=== PATIENT | female | born 1940 | race Caucasian/White ===

== ENCOUNTER 2017-12-05 15:32 | Inpatient (IN) | payer OTHER, SELFPAY ==
[~2017-12-05] VITALS: Ht 167.6 cm; Wt 85.7 kg
--- NOTE | ~2017-12-05 | EKG ---
[place] [address] [facility] [place] [address] ELECTROCARDIOGRAM REPORT Name: KE RAYMOND Room #: 438-P ADM IN M.R.#: [id number] Admission: 12/05/17 Attend Phys: Scott Mcdaniel DO Discharge: Date of : 39 Report #: [id number] THIS REPORT FOR: //name// [facility] ED Test Date: 2017-12-05 Test Time: 17:09:29 Pat Name: KE RAYMOND Department: Room: [facility] Gender: F Rolling Machine Operator: Kale MORGAN : 1940 Requested By: Alka Camp Order Number: [id number] MD: Miguelito Taylor Measurements Intervals [place] Rate: 92 P: 74 AK: 164 QRS: -18 QRSD: 101 T: 55 QT: 332 QTc: 411 Interpretive Statements Sinus rhythm Borderline left axis deviation No previous ECG available for comparison Electronically Signed On 12-05-2017 22:27:00 [employer]OM[employer]BI[employer] by Miguelito Taylor [email or web address] <ELECTRONICALLY SIGNED> By: Miguelito Taylor MD 12/05/17 2227 1709 1709 Miguelito Taylor MD /AURELIO
--- NOTE | ~2017-12-05 | HC ---
[facility] [place] [address] CONSULTATION Name: SEGUNDOKE SHEPPARD Room #: 438-P ADM IN M.R.#: [id number] Admission: 12/05/17 Attend Phys: Scott Mcdaniel DO Discharge: Date of : 39 Report #: [id number] THIS REPORT FOR: //name// CC: Nathan Mcdaniel TYPE OF REPORT: Infectious disease consultation. REASON FOR CONSULTATION: I was asked to evaluate the patient concerning postoperative fever. HISTORY OF PRESENT ILLNESS: The patient was a 77-year old with underlying history of Parkinson's disease, who fell at home fracturing her left hip with a comminuted displaced intertrochanteric femur fracture. No other injuries were noted. On 12/05/2017, she was admitted and on 12/07/2016, underwent ORIF of the left femur fracture with a TFN nail device. There were no intraoperative complications were reported. Postoperatively, she has done reasonably well, although she has had a significant amount of pain. Today, she spiked temperature to 38.5 along with mild tachycardia. Blood pressure has been reasonably stable. The patient has had some confusion and oxygen requirements have increased to 2 liters. Currently, the patient reports mild headache with no pharyngitis symptoms. No nausea, vomiting or diarrhea. Has peripheral IV in place. Minimal cough with no pleuritic chest pain. No sputum production. Has an indwelling Brumfield catheter. No drainage from her left hip incision. Pain has been an issue for her. She did not get out of bed today. ALLERGIES: CEFADROXIL, PENICILLIN and STATIN. MEDICATIONS: As noted on her MAR, now on Levaquin. PAST MEDICAL HISTORY: Parkinson's disease, diabetes, hypertension, right total knee arthroplasty, carpal tunnel surgery, previous broken right arm and left proximal humerus fracture and depression. FAMILY HISTORY: Noncontributory. SOCIAL HISTORY: Lives independently. Nonsmoker. No significant alcohol intake. REVIEW OF SYSTEMS: Noted above. PHYSICAL EXAMINATION: VITAL SIGNS: Afebrile, hemodynamically stable. GENERAL: She is alert, cooperative, had significant pain when trying to roll over in bed. HEENT: Unremarkable. Oxygen at 2 liters per nasal cannula. Mouth unremarkable. [facility] [address] [place] [address] CONSULTATION Name: KE RAYMOND Room #: 438-P [facility] IN M.R.#: [id number] Admission: 12/05/17 Attend Phys: Scott Mcdaniel DO Discharge: Date of : 39 Report #: [id number] NECK: Supple. LUNGS: Crackles heard in the left base posteriorly. No consolidation. HEART: Regular, without murmur. ABDOMEN: Distended, mild epigastric tenderness. No mass or hepatosplenomegaly. GENITOURINARY: Indwelling Brumfield catheter. EXTREMITIES: Left hip incision unremarkable. Extremities otherwise unremarkable. LABORATORY STUDIES: Lactic acid 1.8. Procalcitonin 47. Troponin negative. Urinalysis, few wbc's, rare rbc's and few bacteria. Sodium 131, potassium 4.4, bicarbonate 25 and creatinine 1.5. Hemoglobin 8.4; WBC 16.3 and platelet count 308,000. RADIOLOGICAL DATA: Abdominal x-ray: Dilated loops of small bowel, most consistent with ileus. Chest x-ray, left lower lobe atelectasis, infiltrate. IMPRESSION: A 77-year old, 3 days left hip nail for femur fracture and now with fever, leukocytosis, mild delirium, acute renal failure and findings of a left lower lobe infiltrate and ileus. Her procalcitonin is relatively high. At this point in time, I am concerned about the level and we will monitor this. Doubt source of infection is urinary tract or left hip. I am more concerned about intra-abdominal issue and pneumonia. Also has hyponatremia and we will need to be followed as well. RECOMMENDATIONS: Recommend broad antibiotic coverage for healthcare-associated organisms. Follow up chest x-ray, abdominal x-ray, CBC and chemistry. We will check liver function tests and lipase tonight. Continue with broad antibiotic coverage. Await blood and urine cultures. I have discussed with attending and the patient's family at the bedside. <ELECTRONICALLY SIGNED> By: Erik Echavarria MD 12/13/17 1002 2031 0322 Erik Echavarria MD /nt
--- NOTE | ~2017-12-05 | O ---
[facility] [place] [address] OPERATIVE REPORT Name: SEGUNDOKE Room #: 438-P [facility] IN M.R.#: [id number] Admission: 12/05/17 Attend Phys: Scott Mcdaniel DO Discharge: 12/17/17 Date of : 39 Report #: [id number] THIS REPORT FOR: //name// CC: Nathan Mcdaniel DATE OF SERVICE: 12/07/2017 PREOPERATIVE DIAGNOSIS: Left proximal femur fracture. POSTOPERATIVE DIAGNOSIS: Left proximal femur fracture. PROCEDURE: Left proximal femur fracture open reduction and internal fixation with intermediate length TFN nail fixation. SURGEON: Kayden Burkett MD INDICATIONS: This frail, but still ambulatory 77-year-old female has had multiple falls as a result of poor balance and Parkinson's disease. Her recent fall resulted in a complex comminuted intertrochanteric fracture of the left proximal femur. We discussed treatment options and elected to go ahead with surgical repair using a TFN nail fixation device. DESCRIPTION OF PROCEDURE: The patient was taken to the operating room where she was placed under general anesthesia. Prophylactic intravenous antibiotics were administered. She was positioned on the fracture table with gentle longitudinal traction and appropriate rotation to allow good realignment of the intertrochanteric femur fracture. The lateral aspect of the left hip and thigh were then meticulously prepped and draped. A skin incision was made well above the greater trochanter given her large size. A guidewire was passed through the greater trochanter extending down into the canal. The trochanter was opened and the canal was then reamed with flexible reamers. A TFN nail was then inserted using a 10-mm diameter nail with an intermediate length, 230 mm length nail. This was advanced to an appropriate level and then a guidewire placed through the nail into the femoral neck and head positioning this in the mid to lower aspect of the neck and head region, it seemed to seat nicely. The lateral aspect of the femoral cortex was opened and a helical blade inserted using a 100-mm length blade, this was advanced to a point about 1 cm below the subchondral bone of the femoral head. This positioned the blade nicely in the mid to lower aspect of the femoral head and neck region. It seated nicely and appeared to be secure. The proximal locking nut was tightened down. A distal interlocked screw was then placed using a 36-mm length screw positioned using the outrigger targeting guide. The screw seated nicely and appeared to be secure. The construct was viewed with C-arm and a satisfactory position of the components and good alignment of the fracture was noted. The wounds were then irrigated and good hemostasis established. The wounds were then closed using 0 [facility] [address] [place] [address] OPERATIVE REPORT Name: KE RAYMOND Room #: 438-P [facility] IN M.R.#: [id number] Admission: 12/05/17 Attend Phys: Scott Mcdaniel DO Discharge: 12/17/17 Date of : 39 Report #: [id number] Monocryl sutures and talia in the skin. A sterile dressing was applied. The patient was then awakened and returned to recovery room in good condition. <ELECTRONICALLY SIGNED> By: Kayden Burkett MD 02/18/18 1120 0842 0857 Kayden Burkett MD /nt
--- NOTE | ~2017-12-05 | HC ---
[facility] [place] [address] CONSULTATION Name: KE RAYMOND Room #: 438-P ADM IN M.R.#: [id number] Admission: 12/05/17 Attend Phys: Scott Mcdaniel DO Discharge: Date of : 39 Report #: [id number] THIS REPORT FOR: //name// CC: Nathan Mcdaniel DATE OF SERVICE: 12/05/2017 INCOMPLETE DICTATION HISTORY OF PRESENT ILLNESS: This is a 77-year-old female patient who was evaluated by me for a complicated history. She has a history of Parkinson disease. She sees Dr. Christianson at [facility] neurologist, but she also has seen Dr. Doe, a movement disorder specialist at [facility]. Both of them have managed the patient's Parkinson disease, but she indicates that she has not been responsive to treatment. She was admitted after 2 falls. Both falls happened the same day. She may have been dizzy, but was fully conscious when the fall occurred, but may have had some cognition problem after the fall. During both falls, she hit her head. This was associated with some viral syndrome. She is complaining of neck pain now. She had some neck pain before, but it is worse now. REVIEW OF SYSTEMS: Pretty extensive in this patient. I carried out 14-point review of systems, she indicates that she has Parkinson disease. She has been considered for stimulator, but she does not want to proceed with the stimulator at the moment. She has not been responsive to medication. She has been very careful but she has fallen down even in the past, but not very frequently. She denies any history of stroke. She says she has some freezing intermittently. She broke her hip this time and she is going to have surgery this evening. She is getting some workup done. She is not having any new eye, ENT, cardiac, respiratory, GI, , constitutional, dermatological, hematological, psychiatric, throat, allergic symptom associated with present symptomatology. PAST MEDICAL HISTORY: Positive for Parkinson disease. FAMILY HISTORY: Negative for early age stroke. SOCIAL HISTORY: She denies the use of alcohol and tobacco. PHYSICAL EXAMINATION: Indicate that the patient is alert, responsive, able to follow simple and complex command. She is oriented. Her speech, concentration, fund of knowledge and memory is at her baseline. Cranial nerve examination 2-12 looks unremarkable. Neuromuscular examination is difficult because of hip fracture, especially in the left leg, but looks like she can move the foot reasonably well. Position sense is intact there. I cannot tell about the tone. She has no cerebellar sign. I could not look at the fundus very well. She has [address] [place] [address] CONSULTATION Name: SEGUNDOKE SHEPPARD Room #: 438-P ADM IN M.R.#: [id number] Admission: 12/05/17 Attend Phys: Scott Mcdaniel DO Discharge: Date of : 39 Report #: [id number] no thyroid mass or carotid bruit. Cardiac examination does not appear to be showing any definite abnormality and heart sounds look unremarkable. She does not have any respiratory difficulty or rhonchi. DICTATION ENDS HERE. <ELECTRONICALLY SIGNED> By: Dilan Bass MD 12/08/17 0731 1221 1802 Dilan Bass MD /nt
--- NOTE | ~2017-12-05 | HC ---
[facility] [place] [address] CONSULTATION Name: SEGUNDOKE SHEPPARD Room #: 438-P ADM IN M.R.#: [id number] Admission: 12/05/17 Attend Phys: Scott Mcdaniel DO Discharge: Date of : 39 Report #: [id number] THIS REPORT FOR: //name// CC: Nathan Mcdaniel DATE OF SERVICE: 12/05/2017 CHIEF COMPLAINT: Left proximal femur fracture. HISTORY OF PRESENT ILLNESS: This 77-year-old female has Parkinson disease and some difficulty with balance. She is otherwise fairly healthy and lives independently. She fell at home injuring the left hip. X-rays reveal a comminuted displaced intertrochanteric femur fracture. She sustained no other injuries. She notes some chronic low back discomfort. At the time of my evaluation, she is alert and oriented. She notes that she has been ambulatory, but with some balance issues given her Parkinson disease. She denies any new symptoms with regard to the neck, mid back or upper extremities. Both of her extremities demonstrate good range of motion, strength without any apparent injury. The low back is mildly generally uncomfortable, but this is difficult to evaluate given her hip. In general, however, it seems her low back symptoms are unchanged when compared with previous issues. The pelvis is stable and well aligned, but there is tenderness about the left hip. There is some shortening and rotation of the left lower extremity consistent with a displaced unstable proximal femur fracture. The knee, lower leg, foot and ankle appear to be well aligned and stable. The right lower extremity reveals good alignment and range of motion of the hip, knee and ankle without apparent discomfort. X-rays and CT scan of the left hip reveal a complex comminuted intertrochanteric femur fracture with varus malalignment. There is rather significant osteoporosis and mild comminution at the fracture site. IMPRESSION: In summary, her left proximal femur fracture is best suited for a proximal femoral nail fixation, pending medical clearance and OR availability, we may be able proceed today. We will keep her n.p.o. and plan for surgical repair. I have discussed this with the patient, and she states she understands well. Her family is not here at the hospital at this point, but we will discuss with them when they become available later today. <ELECTRONICALLY SIGNED> By: Kayden Burkett MD 12/06/17 1837 0721 0737 Kayden Burkett MD /nt
--- NOTE | ~2017-12-05 | HC ---
[facility] [place] [address] CONSULTATION Name: KE RAYMOND Room #: 438-P ADM IN M.R.#: [id number] Admission: 12/05/17 Attend Phys: Scott Mcdaniel DO Discharge: Date of : 39 Report #: [id number] THIS REPORT FOR: //name// CC: Kayden Colvin MD DATE OF SERVICE: 12/05/2017 REASON FOR CONSULTATION: Abnormal CAT scan with elevated tumor marker. HISTORY OF PRESENT ILLNESS: The patient is a 77-year-old female with a past history of Parkinson disease who represented to the Emergency Room on about December 05 with 2 unwitnessed falls. If I understand right, she had hit her head. There is some question about a femoral fracture at that time. That has since been repaired. Since that time, they have done some imaging and had found some thickening and perhaps a mass in the left adnexal region. This is described as a small amount of abdominal pelvic ascites, which is abnormal with some nodularity in the omentum and also some nodularity in the posterior [id number]. They said that this was highly concerning for peritoneal carcinomatosis. There was also some thickening of the tissue surrounding the sigmoid, which is essentially tethered to the left adnexal. They were sure this represented carcinomatosis or acute inflammation. The patient is currently being examined in the hospital room with family remembers present. Before this, the patient had been doing normal self without any unusual fevers or chills. Had had some chronic constipation and has not had a colonoscopy in quite some time and had not been aware of any blood in the urine or stool. Her last Pap and pelvic was probably several decades ago. PAST MEDICAL HISTORY: Notable for the Parkinson's in about 2008, the recent left hip fracture with open reduction and internal fixation, history of diabetes, history of paroxysmal supraventricular tachycardia. The patient said it is currently not an issue, has had also right total knee surgery and carpal tunnel surgery in the past. 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 She had lived in [place] for about 47 years. Has a [place] Terrier that she calls Zipcar. No alcohol, no tobacco, no street drugs. FAMILY HISTORY: Both mother and father had maxillary degeneration, had a brother who had esophageal cancer, ; another brother with colon cancer, is 50 that survived, a sister without illnesses, 4 [place] [address] CONSULTATION Name: KE RAYMOND Room #: 438-P [facility] IN M.R.#: [id number] Admission: 12/05/17 Attend Phys: Scott Mcdaniel DO Discharge: Date of : 39 Report #: [id number] specific illnesses. ALLERGIES: SUPPOSEDLY TO CEFADROXIL AND PENICILLIN. LABORATORY DATA: Lab tests here on this admission include a recent BUN of 37, a creatinine of 1, total bilirubin had been 2.4 several days ago with an ALT of 12, AST of 80, albumin of 1.5. Coags recently normal. Recent white blood count 12.6 recent hemoglobin 8.6, note that on admission it had been 10.8; MCV on admission had been 90.8, platelet count is 433, RDW on admission was 14.6. Differential without specific abnormalities. Note that CEA is pending, CA-125 from December 14 is 1144. Urinalysis had been positive for nitrites, positive for blood, Mycobacterium, has had E. coli in the blood and urine. There is also Pseudomonas in the urine. CURRENT MEDICATIONS: In the hospital include levofloxacin 500 mg daily p.o., promethazine IV 12.5 p.r.n., Zofran p.r.n., Tylenol p.r.n., Percocet 2 tabs q. 4 p.r.n., venlafaxine 75 mg XR daily, allopurinol 300 mg daily, carbidopa and levodopa 2 tabs a.c. and several p.r.n. PHYSICAL EXAMINATION: VITAL SIGNS: Height is reported as 5 feet 6 inches, which is 167.6 cm, weight is 189 pounds or 85.7 kilograms, recent blood pressure is 121/46, O2 sat 98%, respirations 20, pulse 91, temperature afebrile at 97.5. MOOD: She is tired, but appears to be a reliable historian. NEUROLOGIC: The patient's face is symmetrical, moving extremities, the left leg with recent surgery. LYMPHATICS: No enlarged lymph nodes in the supraclavicular, cervical, axillary or inguinal region. ABDOMEN: She ____ admits she is obese. No definite masses. SKIN: Has several ecchymoses related to hospitalization. I discussed with the patient and her family that I have been asked to see her because of abnormal lab tests, which is fairly nonspecific, but could be concerning for the presence of cancer and also the abnormalities on her CAT scan. The patient does report she has a history of diverticulosis from the past. At this point, she strongly wishes not to have other invasive procedures. As she improves, we could consider repeating the ultrasound to see if there is enough fluid to consider paracentesis. If not, could also consider a colonoscopy or could also consider a transvaginal ultrasound to get a closer look at this tissue. The patient is not sure that she would wish to take therapy for carcinoma. ASSESSMENT AND PLAN: 1. Abnormal CAT scan of the left adnexa, sigmoid colon and abnormal CA-125. As above, we will follow serially. The patient, I believe, is too sick to tolerate/benefit from test at this time. We will continue to discuss with the [place] [address] [place] [address] CONSULTATION Name: SEGUNDOKE SHEPPADR Room #: 438-P [facility] IN M.R.#: [id number] Admission: 12/05/17 Attend Phys: Scott Mcdaniel DO Discharge: Date of : 39 Report #: [id number] patient and family. 2. Pseudomonas urinary tract infection and Escherichia coli in blood and urine, sepsis. Continue antibiotics, appears to be improving. 3. Left hip fracture, status post open reduction and internal fixation. Consider rehabilitation services. 4. Parkinson's. Continue carbidopa and levodopa. 5. Encephalopathy, appears to be improving. <ELECTRONICALLY SIGNED> By: Amilcar Gray MD 12/17/17 0957 1259 2251 Amilcar Gray MD /nt
--- NOTE | ~2017-12-05 | 2DMMODE ---
[facility] [address] [place] [address] 2 D/M-MODE ECHOCARDIOGRAM Name: KE RAYMOND Room #: 438-P ADM IN M.R.#: [id number] Admission: 12/05/17 Attend Phys: Scott Mcdaniel, Discharge: Date of : 38 Date of Service: 12/15/17 1548 Report #: [id number] THIS REPORT FOR: //name// APPROVED REPORT Study performed: 12/15/2017 14:43:56 EXAM: Comprehensive 2D, Doppler, and color-flow Echocardiogram Patient Location: Bedside Room #: 438 Status: routine BSA: 1.93 HR: 84 bpm BP: 121/46 mmHg Rhythm: NSR Other Information Study Quality: Good Indications Elevated BNP 2D Dimensions RVDd: 35.33 mm LVEF(%): 66.40 (>50%) IVSd: 11.18 (7-11mm) LVOT Diam: 18.61 (18-24mm) LVDd: 37.60 mm PWd: 11.04 (7-11mm) Ascending Ao: 34.43 (22-36mm) LVDs: 24.06 (25-40mm) Aortic Root: 29.68 mm IVC: 19.00 mm Rhoades's LVEF: 66.40 % Volumes Left Atrial Volume (Systole) Single Plane 4CH: 47.67 mL Single Plane 2CH: 60.46 mL LA ESV Index: 31.00 mL/m2 Aortic Valve AoV Peak Tobias.: 2.36 m/s AO Peak Gr.: 22.27 mmHg LVOT Max P.59 mmHg LVOT Max V: 1.28 m/s JJ Vmax: 1.48 cm2 Mitral Valve E/A Ratio: 0.9 MV Decel. Time: 243.75 ms [facility] [place] [address] 2 D/M-MODE ECHOCARDIOGRAM Name: KE RAYMOND Room #: 438-P ADM IN M.R.#: [id number] Admission: 12/05/17 Attend Phys: Scott Mcdaniel, Discharge: Date of : 38 Date of Service: 12/15/17 1548 Report #: [id number] E Max Tobias.: 1.35 m/s MV A Tobias.: 1.51 m/s MV PHT: 70.69 ms IVRT: 78.43 ms Pulmonary Valve PV Peak Tobias.: 1.31 m/s PV Peak Gr.: 6.84 mmHg Pulmonary Vein P Vein S: 0.59 m/s P Vein A: 0.39 m/s P Vein D: 0.52 m/s P Vein A Dur.: 106.1 msec P Vein S/D Ratio: 1.13 Tricuspid Valve TR Peak Tobias.: 3.30 m/s RAP Estimate: 5.00 mmHg TR Peak Gr.: 43.50 mmHg PA Pressure: 48.00 mmHg Left Ventricle The left ventricle is normal size. There is normal left ventricular wall thickness. The left ventricular systolic function is normal. LVEF is 60-65%. Grade I - abnormal relaxation pattern. Right Ventricle The right ventricle is normal size. The right ventricular systolic function is normal. Atria The left atrium size is normal. The right atrium size is normal. Aortic Valve Aortic valve is calcified. Trace aortic regurgitation. Mild aortic stenosis. Mitral Valve Mild mitral annular calcification. Mild mitral regurgitation. No evidence of mitral valve stenosis. Tricuspid Valve The tricuspid valve is normal in structure. Mild tricuspid regurgitation. Estimated PAP 48 mmHg. Pulmonic Valve The pulmonary valve is normal in structure. Trace pulmonic regurgitation. [address] [address] 2 D/M-MODE ECHOCARDIOGRAM Name: KE RAYMOND Room #: 438-P [facility] IN .R.#: [id number] Admission: 12/05/17 Attend Phys: Scott Mcdaniel, Discharge: Date of : 38 Date of Service: 12/15/17 1548 Report #: [id number] Great Vessels The aortic root is normal in size. The ascending aorta is normal in size. IVC is normal in size and collapses >50% with inspiration. <Conclusion> The left ventricle is normal size. There is normal left ventricular wall thickness. The left ventricular systolic function is normal. Grade I - abnormal relaxation pattern. The right ventricle is normal size. The left atrium size is normal. Mild aortic stenosis. Mild mitral regurgitation. Mild tricuspid regurgitation. Estimated PAP 48 mmHg. <ELECTRONICALLY SIGNED> By: Marquez Bloom MD 12/15/17 1548 1548 1548 Marquez Bloom MD /INF
[2017-12-05 16:04] LABS: HEMATOCRIT 32.8 % (37.0-47.0); HEMOGLOBIN 10.8 gm/dL (12.0-15.0); MCH 30.1 pg (26.0-34.0); MCHC 33.1 g/dL (28.0-37.0); MCV 90.8 fL (80.0-100.0); PLATELET COUNT 475 thou/uL (150-400); RBC 3.61 mil/uL (4.20-5.00); RDW 14.6 % (10.5-14.5); WBC 12.2 thou/uL (4.0-11.0)
[2017-12-05 16:18] LABS: CALCIUM 9.3 mg/dL (8.5-10.1); CREATININE 1.2 mg/dL (0.6-1.0); POTASSIUM 4.3 mmol/L (3.5-5.1)
[2017-12-05 16:20] LABS: PROTIME 10.2 Seconds (9.3-11.4)
[2017-12-05 16:55] LABS: ABSOLUTE NEUTROPHILS 10.2 thou/uL (1.4-8.2)
[2017-12-05] MEDS ORDERED: GLYBURIDE-METF1 EACH PO (17:39)
[2017-12-05] MEDS ORDERED: CARBIDOPA-LEVO1 EAC7 PO (17:40)
[2017-12-05] MEDS ORDERED: QUINAPRIL-HCTZ1 EAC1 PO (17:40)
[2017-12-05] MEDS ORDERED: EFFEXOR XR75 MG PO (17:41)
[2017-12-05] MEDS ORDERED: ALLOPURINOL 30300 M1 PO (17:41)
[2017-12-05] MEDS ORDERED: TRAMADOL 50 MG50 MG PO (17:42)
[2017-12-05] MEDS ORDERED: PRESERVISION T1 EACH PO (17:42)
[2017-12-05] MEDS ORDERED: NEPHROCAPS SOFT1 CAP PO (17:44)
[2017-12-05] MEDS ORDERED: ALLEGRA-D 12 H1 EAC1 PO (17:44)
[2017-12-05 17:51] VITALS: BP 152/71
[2017-12-05 19:44] LABS: URINE BILIRUBIN NEGATIVE (Negative); URINE BLOOD NEGATIVE (Negative); URINE CLARITY CLEAR; URINE COLOR YELLOW; URINE GLUCOSE-RANDOM* NEGATIVE (Negative); URINE KETONES 1+ (Negative); URINE LEUKOCYTES 1+ (Negative); URINE NITRITE POSITIVE (Negative); URINE PROTEIN (DIPSTICK) TRACE (Negative); URINE UROBILINOGEN 0.2 E.U./dl (0.2-1.0)
[2017-12-05 19:51] LABS: CASTS None Seen /LPF (None Seen); CRYSTALS None Seen /LPF (None Seen); SQUAMOUS 0-3 Few /LPF (0-3)
[2017-12-05 19:54] LABS: BACTERIA >30 Many /HPF (None Seen)
[2017-12-05] MEDS ORDERED: SINEMET 25-1001 EAC1 PO (19:54)
[2017-12-05 19:55] LABS: URINE RBC 0-2 Rare /HPF (0-2); WBC CLUMPS Few (None Seen)
[2017-12-05] MEDS ORDERED: DICLOFENAC SODI75 MG PO (20:00)
[2017-12-05 20:03] VITALS: BP 137/61
[2017-12-05 23:40] VITALS: BP 126/60
[2017-12-06 04:30] VITALS: BP 131/66
[2017-12-06 06:17] LABS: ABSOLUTE NEUTROPHILS 10.5 thou/uL (1.4-8.2); BASOPHILS 0.4 % (0.0-2.0); EOSINOPHILS 0.2 % (0.0-3.0); HEMATOCRIT 31.5 % (37.0-47.0); HEMOGLOBIN 10.3 gm/dL (12.0-15.0); LYMPHOCYTES 5.9 % (24.0-44.0); MCH 29.7 pg (26.0-34.0); MCHC 32.6 g/dL (28.0-37.0); MCV 91.3 fL (80.0-100.0); PLATELET COUNT 430 thou/uL (150-400); POLYS 86.5 % (36.0-66.0); RBC 3.45 mil/uL (4.20-5.00); RDW 14.7 % (10.5-14.5); WBC 12.2 thou/uL (4.0-11.0)
[2017-12-06 06:19] LABS: CREATININE 0.9 mg/dL (0.6-1.0); POTASSIUM 4.3 mmol/L (3.5-5.1)
[2017-12-06 08:27] VITALS: BP 139/80
[2017-12-06 21:01] VITALS: BP 116/67
[2017-12-07] VITALS (8 sets, daily range): BP systolic 99–152; BP diastolic 47–79
[2017-12-07 09:46] LABS: HEMATOCRIT 33.6 % (37.0-47.0); HEMOGLOBIN 10.5 gm/dL (12.0-15.0); MCH 29.4 pg (26.0-34.0); MCHC 31.4 g/dL (28.0-37.0); MCV 93.5 fL (80.0-100.0); RBC 3.59 mil/uL (4.20-5.00); WBC 14.7 thou/uL (4.0-11.0)
[2017-12-08] VITALS (7 sets, daily range): BP systolic 102–135; BP diastolic 52–71
[2017-12-08 04:18] LABS: HEMATOCRIT 26.5 % (37.0-47.0); HEMOGLOBIN 8.7 gm/dL (12.0-15.0); MCH 29.9 pg (26.0-34.0); MCHC 32.9 g/dL (28.0-37.0); MCV 90.8 fL (80.0-100.0); RBC 2.92 mil/uL (4.20-5.00); RDW 14.8 % (10.5-14.5); WBC 13.8 thou/uL (4.0-11.0)
[2017-12-09 04:00] VITALS: BP 107/45
[2017-12-09 06:40] LABS: HEMATOCRIT 25.8 % (37.0-47.0); HEMOGLOBIN 8.6 gm/dL (12.0-15.0); MCH 29.7 pg (26.0-34.0); MCHC 33.1 g/dL (28.0-37.0); MCV 89.7 fL (80.0-100.0); RBC 2.88 mil/uL (4.20-5.00); RDW 14.5 % (10.5-14.5); WBC 14.6 thou/uL (4.0-11.0)
[2017-12-09 19:15] VITALS: BP 97/56
[2017-12-09 20:50] VITALS: BP 93/46
[2017-12-10 04:32] VITALS: BP 129/47
[2017-12-10 08:00] VITALS: BP 97/48
[2017-12-10 10:31] LABS: HEMATOCRIT 25.6 % (37.0-47.0); HEMOGLOBIN 8.4 gm/dL (12.0-15.0); MCH 29.6 pg (26.0-34.0); MCV 89.9 fL (80.0-100.0); RBC 2.84 mil/uL (4.20-5.00); RDW 14.5 % (10.5-14.5); WBC 16.3 thou/uL (4.0-11.0)
[2017-12-10 10:40] LABS: CALCIUM 8.8 mg/dL (8.5-10.1); CREATININE 1.5 mg/dL (0.6-1.0); POTASSIUM 4.4 mmol/L (3.5-5.1)
[2017-12-10 11:29] LABS: URINE BILIRUBIN 2+ (Negative); URINE BLOOD 3+ (Negative); URINE CLARITY SL CLOUDY; URINE GLUCOSE-RANDOM* NEGATIVE (Negative); URINE KETONES TRACE (Negative); URINE LEUKOCYTES-REFLEX 2+ (Negative); URINE NITRITE-REFLEX POSITIVE (Negative); URINE PROTEIN (DIPSTICK) 2+ (Negative); URINE SPECIFIC GRAVITY 1.025 (1.005-1.035)
[2017-12-10 11:30] LABS: URINE COLOR DARK YELLOW
[2017-12-10 11:33] LABS: ICTOTEST (BILI CONFIRMATORY) Positive (Negative)
[2017-12-10 11:48] LABS: COARSE GRANULAR CASTS >10 Many /LPF (None Seen); SQUAMOUS 0-3 Few /LPF (0-3)
[2017-12-10 11:49] LABS: FINE GRANULAR CASTS 0-3 Few /LPF (None Seen); URINE WBC-REFLEX 6-15 Few /HPF (0-5)
[2017-12-10 11:50] LABS: AMORPHOUS URATES Moderate /LPF (None Seen); BACTERIA-REFLEX 1-9 Few /HPF (None Seen); CRYSTALS None Seen /LPF (None Seen); URINE RBC 0-2 Rare /HPF (0-2)
[2017-12-10 16:00] VITALS: BP 121/46
[2017-12-10 22:37] VITALS: BP 105/54
[2017-12-11 06:29] LABS: ABSOLUTE NEUTROPHILS 10.6 thou/uL (1.4-8.2); BASOPHILS 0.2 % (0.0-2.0); EOSINOPHILS 0.2 % (0.0-3.0); HEMATOCRIT 23.4 % (37.0-47.0); HEMOGLOBIN 7.7 gm/dL (12.0-15.0); LYMPHOCYTES 2.1 % (24.0-44.0); MCH 29.7 pg (26.0-34.0); MCHC 32.9 g/dL (28.0-37.0); MCV 90.2 fL (80.0-100.0); MONOCYTES 5.8 % (1.0-8.0); PLATELET COUNT 264 thou/uL (150-400); POLYS 91.7 % (36.0-66.0); RBC 2.59 mil/uL (4.20-5.00); RDW 14.4 % (10.5-14.5); WBC 11.6 thou/uL (4.0-11.0)
[2017-12-11 06:42] LABS: ALBUMIN 1.5 g/dL (3.4-5.0); CALCIUM 8.4 mg/dL (8.5-10.1); CREATININE 1.9 mg/dL (0.6-1.0); POTASSIUM 4.3 mmol/L (3.5-5.1); TOTAL BILIRUBIN 2.4 mg/dL (<0.1-1.0); TOTAL PROTEIN 5.6 g/dL (6.4-8.2)
[2017-12-11 06:52] VITALS: BP 101/49
[2017-12-11 08:00] VITALS: BP 104/50
[2017-12-11 16:00] VITALS: BP 92/45
[2017-12-11 19:46] VITALS: BP 103/50
[2017-12-12 04:05] VITALS: BP 95/46
[2017-12-12 09:08] VITALS: BP 105/58
[2017-12-12 17:42] VITALS: BP 92/44
[2017-12-12 19:54] VITALS: BP 100/40
[2017-12-13 04:42] VITALS: BP 93/50
[2017-12-13 08:00] VITALS: BP 117/57
[2017-12-13 11:19] LABS: HEMATOCRIT 25.7 % (37.0-47.0); HEMOGLOBIN 8.6 gm/dL (12.0-15.0); MCHC 33.3 g/dL (28.0-37.0); MCV 90.2 fL (80.0-100.0); RBC 2.85 mil/uL (4.20-5.00); WBC 10.9 thou/uL (4.0-11.0)
[2017-12-13 11:31] LABS: CALCIUM 8.7 mg/dL (8.5-10.1); CREATININE 1.6 mg/dL (0.6-1.0); MAGNESIUM 2.3 mg/dL (1.8-2.4); POTASSIUM 4.1 mmol/L (3.5-5.1)
[2017-12-13 16:00] VITALS: BP 124/78
[2017-12-13 19:22] VITALS: BP 134/56
[2017-12-14 03:30] VITALS: BP 141/60
[2017-12-14 06:32] LABS: HEMATOCRIT 26.4 % (37.0-47.0); HEMOGLOBIN 8.8 gm/dL (12.0-15.0); MCH 29.7 pg (26.0-34.0); MCHC 33.3 g/dL (28.0-37.0); MCV 89.2 fL (80.0-100.0); RBC 2.96 mil/uL (4.20-5.00); RDW 15.2 % (10.5-14.5); WBC 12.8 thou/uL (4.0-11.0)
[2017-12-14 06:55] LABS: CALCIUM 8.8 mg/dL (8.5-10.1); CREATININE 1.2 mg/dL (0.6-1.0); MAGNESIUM 2.3 mg/dL (1.8-2.4); POTASSIUM 4.2 mmol/L (3.5-5.1)
[2017-12-14 08:53] VITALS: BP 152/61
[2017-12-14 16:01] VITALS: BP 144/56
[2017-12-14 20:19] VITALS: BP 159/82
[2017-12-15 05:01] VITALS: BP 156/84
[2017-12-15 05:03] LABS: HEMATOCRIT 26.1 % (37.0-47.0); HEMOGLOBIN 8.6 gm/dL (12.0-15.0); MCH 29.6 pg (26.0-34.0); MCHC 33.1 g/dL (28.0-37.0); MCV 89.5 fL (80.0-100.0); RBC 2.91 mil/uL (4.20-5.00); RDW 15.2 % (10.5-14.5); WBC 12.6 thou/uL (4.0-11.0)
[2017-12-15 05:13] LABS: CALCIUM 8.9 mg/dL (8.5-10.1); MAGNESIUM 2.3 mg/dL (1.8-2.4); POTASSIUM 4.1 mmol/L (3.5-5.1)
[2017-12-15 08:18] VITALS: BP 153/80
[2017-12-15 11:21] LABS: INR 1.1; LIPASE 170 U/L (73-393); PROTIME 11.1 Seconds (9.3-11.4); TROPONIN-I < 0.04 ng/mL (<0.06)
[2017-12-15 12:04] VITALS: BP 121/46
[2017-12-15 15:24] VITALS: BP 126/54
[2017-12-15 20:00] VITALS: BP 124/50
[2017-12-16 04:00] VITALS: BP 126/63
[2017-12-16 04:21] LABS: HEMATOCRIT 24.4 % (37.0-47.0); MCH 29.5 pg (26.0-34.0); MCHC 32.9 g/dL (28.0-37.0); MCV 89.6 fL (80.0-100.0); RBC 2.72 mil/uL (4.20-5.00); WBC 12.6 thou/uL (4.0-11.0)
[2017-12-16 04:23] LABS: CALCIUM 8.2 mg/dL (8.5-10.1); CREATININE 0.9 mg/dL (0.6-1.0); POTASSIUM 4.3 mmol/L (3.5-5.1)
[2017-12-16 06:09] LABS: CEA 1.5 ng/mL (0.0-4.7)
[2017-12-16 16:00] VITALS: BP 130/59
[2017-12-16 19:44] VITALS: BP 119/50
[2017-12-17 04:22] VITALS: BP 131/62
[2017-12-17 06:59] LABS: HEMATOCRIT 25.4 % (37.0-47.0); HEMOGLOBIN 8.3 gm/dL (12.0-15.0); MCH 29.5 pg (26.0-34.0); MCHC 32.7 g/dL (28.0-37.0); MCV 90.1 fL (80.0-100.0); RBC 2.82 mil/uL (4.20-5.00); RDW 15.4 % (10.5-14.5); WBC 13.7 thou/uL (4.0-11.0)
[2017-12-17 07:09] LABS: CALCIUM 8.3 mg/dL (8.5-10.1); CREATININE 0.8 mg/dL (0.6-1.0); POTASSIUM 4.6 mmol/L (3.5-5.1)
[2017-12-17 08:10] VITALS: BP 133/54
[2017-12-17] MEDS ORDERED: PERCOCET PO (09:59)
[2017-12-17] MEDS ORDERED: ACETAMINOPHEN325 M1 PO (09:59)
[2017-12-17] MEDS ORDERED: MIRALAX17 GM PO (10:00)
[2017-12-17] MEDS ORDERED: LEVAQUIN 500 M500 M3 PO (10:08)
== END 2017-12-17 13:15 | DRG 480 ==
LOC: ER 15:32 → 4S 16:42 → EROBS 16:42 → ER 16:42 → 4S 17:52 → EROBS 19:35 → 4S 19:35
PROVIDERS: Emergency Medicine; Family Medicine; Hospitalist; Internal Medicine; Orthopaedic Surgery; Specialist
PROC: 0QS704Z Reposition Left Upper Femur with Internal Fixation Device, Open Approach (ICD-10-PCS; principal; 2017-12-07)
DX: S72.142A Displaced intertrochanteric fracture of left femur, initial encounter for closed fracture (principal); A41.9 Sepsis, unspecified organism; G93.40 Encephalopathy, unspecified; N17.0 Acute kidney failure with tubular necrosis; N39.0 Urinary tract infection, site not specified; E87.1 Hypo-osmolality and hyponatremia; K56.7 Ileus, unspecified; N12 Tubulo-interstitial nephritis, not specified as acute or chronic; R18.8 Other ascites; N17.9 Acute kidney failure, unspecified; G20 Parkinson's disease; E11.9 Type 2 diabetes mellitus without complications; I10 Essential (primary) hypertension; Z96.651 Presence of right artificial knee joint; F32.9 Major depressive disorder, single episode, unspecified; R41.0 Disorientation, unspecified; B96.5 Pseudomonas (aeruginosa) (mallei) (pseudomallei) as the cause of diseases classified elsewhere; B96.20 Unspecified Escherichia coli [E. coli] as the cause of diseases classified elsewhere; K59.00 Constipation, unspecified; Z28.21 Immunization not carried out because of patient refusal; W18.39XA Other fall on same level, initial encounter; Y93.89 Activity, other specified; Y92.89 Other specified places as the place of occurrence of the external cause; Y99.8 Other external cause status; Z88.0 Allergy status to penicillin; Z88.8 Allergy status to other drugs, medicaments and biological substances; Z80.0 Family history of malignant neoplasm of digestive organs; Z79.899 Other long term (current) drug therapy
CPT/HCPCS: 10100; 10102; 50010; 50101; 50133; 50386; 50635; 51412; 51538; 51817; 52145; 52304; 55445; 56525; 57092; 62110; 62900; 64037; 70005